=== PATIENT | female | born 1975 | race Caucasian/White ===

== ENCOUNTER 2019-01-04 09:27 | Emergency (ER) | payer OTHER | END 2019-01-04 13:07 | disposition home or self-care (01) | LOC: FER 09:27 ==

== ENCOUNTER 2021-01-01 15:44 | Emergency (ER) | payer OTHER ==
[2021-01-01 15:51] VITALS: BP 145/95; PULSE 87; TEMP 99.2; BMI 24.6
[2021-01-01] MEDS ORDERED: ACETAMINOPHEN 500 MG TABLET (FP) PO ONE (16:10)
[2021-01-01] MEDS ORDERED: ACETAMINOPHEN 500 MG TABLET (FP) ONE (16:36)
[2021-01-01] MEDS ORDERED: SULFAMETHOXAZOLE/TRIMETHOPRIM 800MG/160MG D.S. TABLET ONE (16:55)
== END 2021-01-01 17:55 | disposition home or self-care (01) ==
LOC: FER 15:44
DX: S82.892A Other fracture of left lower leg, initial encounter for closed fracture (principal); W22.8XXA Striking against or struck by other objects, initial encounter; Y93.17 Activity, water skiing and wake boarding
CPT/HCPCS: 73590-TC-LT-FY; 73610-TC-LT-FY; 73630-TC-LT; 99284-25